=== PATIENT | male | born 1980 | race Two or more races ===

== ENCOUNTER 2021-07-14 09:42 | Emergency (ER) | payer OTHER ==
[~2021-07-14] VITALS: Ht 177.8 cm; Wt 86.2 kg
== END 2021-07-14 12:18 | disposition home or self-care (01) ==
LOC: ER 09:42
DX: U07.1 COVID-19 (principal); B34.8 Other viral infections of unspecified site

== ENCOUNTER 2022-10-29 10:54 | Outpatient (CLI) | payer OTHER | END 2022-10-29 11:16 | disposition home or self-care (01) | LOC: RAD 10:54 | PROVIDERS: ATTEND Orthopaedic Surgery | DX: M79.641 Pain in right hand (principal); M79.642 Pain in left hand ==

== ENCOUNTER 2023-01-03 09:25 | Emergency (ER) | payer OTHER ==
[~2023-01-03] VITALS: Ht 188 cm; Wt 104.3 kg
== END 2023-01-03 13:47 | disposition home or self-care (01) ==
LOC: ER 09:25
DX: M54.59 Other low back pain (principal); Z91.013 Allergy to seafood